=== PATIENT | male | born 1960 | race Caucasian/White ===

== ENCOUNTER 2024-05-03 06:21 | Day surgery (SDC) | payer BC, SELFPAY ==
[2024-04-12 13:39] VITALS: BMI 25.8
[2024-05-03] VITALS (9 sets, daily range): BP systolic 126–160; BP diastolic 57–91; BMI 25.8
[2024-05-03] MEDS: NORMOSOL-R/PLASMALYTE-A 1000 IV (07:42)
[2024-05-03] MEDS: TYLENOL 1000 MG PO (07:42)
--- NOTE | 2024-05-03 08:55 | W.SUR.PREOP ---
Pre-Operative Surgical Note
-
I have examined this patient prior to the performance of the scheduled procedure.
The patient's condition is unchanged from the time of the current History and
Physical and the patient is able to undergo the scheduled procedure.
--- NOTE | 2024-05-03 08:56 | HP.FOC2 ---
Focused History & Physical
Chief Complaint
HPI:
Chief Complaint: This is a 63-year-old male with a symptomatic umbilical hernia. Will plan for robotic umbilical hernia repair with mesh.
HPI / Indication for Planned Procedure:
This is a 63-year-old male with a symptomatic umbilical hernia. Will plan for robotic umbilical hernia repair with mesh.
Relevant Past Medical History: Negative
Relevant Social History: Negative
Relevant Family History: Negative
Relevant Past Surgical History: Negative
Review of Systems
Review of Pertinent Systems: All Systems Negative
Medication
See Medication form for detailed medications: Yes
Medication List (including Herbals & OTC):
atorvastatin 10 mg tablet 10 mg PO DAILY 04/21/24
ibuprofen 200 mg tablet 400 mg PO Q6H PRN pain 04/21/24
Medications Reviewed: Yes
Allergies and Reactions
Patient has Allergies: Yes
Noted Allergies and Reactions:
Allergy/AdvReac Type Severity Reaction Status Date / Time
amoxicillin Allergy Rash Verified 04/21/24 11:10
Pertinent Physical Exam
All Other Systems: Negative
Head/Neck: Normal
Diagnosis / Assessment
This is a 63-year-old male with a symptomatic umbilical hernia. Will plan for robotic umbilical hernia repair with mesh.
Plan / Procedure
This is a 63-year-old male with a symptomatic umbilical hernia. Will plan for robotic umbilical hernia repair with mesh.
Anesthesia/Sedation to be done by Anesthesia Provider: Yes
--- NOTE | 2024-05-03 11:09 | W.IMMPOSTOP ---
Surgical Immed Post Op Note
-
Primary Surgeon: Ji Hoover MD
Assisting Surgeon: None
Pre-op Diagnosis: Umbilical hernia
Post-op Diagnosis: Same
Procedure Performed: Robotic umbilical hernia repair with mesh (BARRON)
Anesthesia Type: General
Specimen / Cultures: None
Estimated Blood Loss: 11 cc
Complications: None
Operative Findings: 1cm omentum and pre-peritoneal fat containing umbilical hernia. the defect was closed with a 0 V-Loc 180 suture and the space was reinforced with a 10 cm round uncoated polypropylene Bard soft mesh. The preperitoneal flap was
closed with a 2-0 barbed Monocryl.
--- NOTE | 2024-05-03 11:15 | OR.RPT ---
Operative Report
Operative Report
Patient Name: Pablo Gan
: 1960
Date of Operation: 05/03/2024
Preoperative Diagnosis: Umbilical hernia
Postoperative Diagnosis: Same
Procedure(s):
Robotic umbilical hernia repair with mesh (BARRON approach)
Surgeon(s):
Dr. Hoover
Ocularist(s):
DANYELL Page
Anesthesia: General
Estimated Blood Loss: 11 cc
Urine Output: None
Drains/Lines/Implants:
10 x 10 cm round Bard soft mesh
Specimens:
None
HPI/Surgical Indications:
This is a 63-year-old male who was seen in my office for a symptomatic umbilical bulge and diagnosed with a reducible umbilical hernia. Risks/Benefits/Alternatives were discussed at length, and the patient agreed to proceed with surgery.
Operative Findings: 1cm omentum and pre-peritoneal fat containing umbilical hernia. the defect was closed with a 0 V-Loc 180 suture and the space was reinforced with a 10 cm round uncoated polypropylene Bard soft mesh. The preperitoneal flap was
closed with a 2-0 barbed Monocryl.
Procedure Description:
The patient was brought to the Operating Room and placed in the supine position with the arms tucked. IV antibiotics were infused and Venodyne stockings placed. Following uneventful induction of general endotracheal anesthesia, an orogastric tube
were placed. The abdomen was prepped and draped in the usual sterile fashion. The abdomen was entered using a Veress technique which required 1 pass, pneumoperitoneum to 15 mmHg was obtained without difficulty. An 8mm trochar was passed through
the abdominal wall roughly 20 cm laterally from the defect in the left upper quadrant, we then confirmed that no inadvertent injury was made while passing the trocar or Veress needle. We then placed two additional 8 mm ports in the left lower
quadrant. Bilateral tap blocks were performed. The robot was docked. We then introduced our prograsper through the inferior/left hand port and a monopolar scissors through the superior port. We then turned our attention to the hernia which had a
tongue of omentum that was stuck in the hernia defect, this was reduced and then resected at the stalk and removed. We then began taking a flap down roughly 6 cm away from the defect and roughly 11 cm in length taking care to stay in the
pretransversalis plane. The flap was particularly thin. The preperitoneal fat was taken down off of the posterior rectus sheath both superior and inferior to the hernia defect such that we were able to get our 'volcano sign'. We then worked on
reducing the defect which contained preperitoneal fat and continued our dissection out laterally for an additional 6 to 7 cm. Once our flap was created we introduced a ruler and a 0 V-Loc 180. The main hernia defect measured 1.1 cm. The pocket
measured 11 x 11 cm. I had my head start assistant teacher cut a 10 x 10 cm piece of Bard soft mesh marked with 0 Vicryl suture at the center, as I closed the umbilical defect with the 0 V-Loc 180. The mesh was then sutured to the posterior rectus sheath in 4
quadrants with 2-0 vircyls to ensure good apposition. A 2-0 Monocryl was introduced which was used to close our flap. All sutures were removed. The robot was undocked. The ports were removed under direct visualization and pneumoperitoneum was
evacuated. The port sites were closed with 4-0 Monocryl followed by Dermabond. Counts were correct and overall, the patient tolerated the procedure well and was taken to the Recovery Room postoperatively in stable condition.
I was the attending physician and performed the procedure with assistance from the HOB GRINDER above. I was present for all portions of the case except for skin closure.
Ji Hoover MD
== END 2024-05-03 13:10 | disposition home or self-care (01) ==
LOC: SDS 06:21
PROVIDERS: ATTENDING PHYSICIAN Surgery
DX: K42.9 Umbilical hernia without obstruction or gangrene (principal)
CPT/HCPCS: 49593; 36415; 93005; C1781